=== PATIENT | female | born 1965 | race Hispanic/Latino ===

== ENCOUNTER 2016-09-02 23:13 | Emergency (ER) | payer SELFPAY ==
[2016-09-03 00:01] LABS: Basophils % (Auto) 0.4 % (0.0-1.8); Hematocrit 34.6 % (30.3-42.9); Hemoglobin 11.7 gm/dl (10.1-14.3); Mean Corpuscular HGB Conc 34 % (30-34); Mean Corpuscular Hemoglobin 27 pg (28-32); Mean Corpuscular Volume 81 fl (79-97); Platelet Count 240 K/mm3 (140-440); Red Blood Count 4.28 M/mm3 (3.65-5.03); Red Cell Distribution Width 14.9 % (13.2-15.2); White Blood Count 6.4 K/mm3 (4.5-11.0)
[2016-09-03 00:09] LABS: Anion Gap 17 mmol/L; Blood Urea Nitrogen 14 mg/dL (7-17); Calcium 8.7 mg/dL (8.4-10.2); Carbon Dioxide 25 mmol/L (22-30); Chloride 102.7 mmol/L (98-107); Glucose 100 mg/dL (65-100); Potassium 4.4 mmol/L (3.6-5.0); Sodium 140 mmol/L (137-145)
[2016-09-03 07:58] VITALS: BP 109/73
== END 2016-09-03 06:00 | disposition left against medical advice (07) ==
LOC: ED 23:13
DX: R07.9 Chest pain, unspecified (principal)
CPT/HCPCS: 36415; 80048; 84484; 85025; 93005; 93010

== ENCOUNTER 2016-10-31 12:24 | Emergency (ER) | payer SELFPAY ==
[2016-10-31] MEDS ORDERED: NACL 0.9% 1000 ML 1,000 ML IV ONE (13:18)
[2016-10-31] MEDS ORDERED: ZOFRAN IV ONE (13:18)
[2016-10-31] MEDS ORDERED: MORPHINE IV ONE (13:18)
--- NOTE | 2016-10-31 13:18 | Emergency Department Report ---
ED Abdominal Pain HPI - General Chief Complaint: Abdominal Pain Stated Complaint: ABD/FLANK PAIN Time Seen by Provider: 10/31/16 13:08 Source: patient, EMS Mode of arrival: Stretcher Limitations: No Limitations - History of Present Illness Initial Comments: 51-year-old female presents to the emergency department via EMS complaining of abdominal pain. Patient states that for the past 2 days she has been having nausea, vomiting, and diarrhea. She denies seeing any blood. She reports acute onset of right upper abdominal pain this morning at approximately 10 AM. Patient describes a stabbing pain that radiates through to her back. Pain has been constant since onset and increasing in intensity. There are no other complaints. MD Complaint: abdominal pain -: Sudden, This morning Time: 10:00 Location: RUQ Radiation: back Migration to: no migration Severity: severe Severity scale (0 -10): 9 Quality: stabbing Consistency: constant Improves With: nothing Worsens With: nothing Associated Symptoms: nausea, vomiting, diarrhea - Related Data Home Medications Medication Instructions Recorded Confirmed Last Taken Citalopram [Celexa] 20 mg PO QDAY 10/31/16 10/31/16 Unknown Previous Rx's Medication Instructions Recorded Last Taken Type Butalb/Acetaminophen/Caffeine 1 cap PO Q6HR PRN #20 cap 01/19/16 Unknown Rx [Fioricet 50-300-40 mg CAP] Promethazine [Phenergan TAB] 25 mg PO Q6HR PRN #20 tab 10/31/16 Unknown Rx oxyCODONE /ACETAMINOPHEN [Percocet 1 tab PO Q6HR PRN #20 tablet 10/31/16 Unknown Rx 5/325] Allergies Allergy/AdvReac Type Severity Reaction Status Date / Time aspirin Allergy Swelling Verified 09/29/15 20:30 ibuprofen [From Motrin] Allergy Swelling Verified 09/29/15 20:30 NSAIDS (Non-Steroidal Allergy Swelling Verified 09/29/15 20:30 Anti-Inflamma NTG paste Allergy Vomiting Uncoded 09/29/15 20:31 ED Review of Systems ROS: Stated complaint: ABD/FLANK PAIN Other details as noted in HPI Comment: All other systems reviewed and negative Gastrointestinal: abdominal pain, nausea, vomiting, diarrhea ED Past Medical Hx - Past Medical History Previous Medical History?: Yes Hx Psychiatric Treatment: Yes (depression) Hx Asthma: Yes - Surgical History Past Surgical History?: Yes Additional Surgical History: tubal ligation, , tonsillectomy - Family History Family history: no significant - Social History Smoking Status: Former Smoker Substance Use Type: None - Medications Home Medications: Home Medications Medication Instructions Recorded Confirmed Last Taken Type Butalb/Acetaminophen/Caffeine 1 cap PO Q6HR PRN #20 cap 01/19/16 Unknown Rx [Fioricet 50-300-40 mg CAP] Citalopram [Celexa] 20 mg PO QDAY 10/31/16 10/31/16 Unknown History Promethazine [Phenergan TAB] 25 mg PO Q6HR PRN #20 tab 10/31/16 Unknown Rx oxyCODONE /ACETAMINOPHEN [Percocet 1 tab PO Q6HR PRN #20 tablet 10/31/16 Unknown Rx 5/325] ED Physical Exam - General Limitations: No Limitations General appearance: alert, in distress (moderate distress secondary to pain) - Head Head exam: Present: atraumatic, normocephalic - Eye Eye exam: Present: normal appearance, PERRL, EOMI - ENT ENT exam: Present: normal exam, normal orophraynx, mucous membranes moist - Neck Neck exam: Present: normal inspection, full ROM. Absent: tenderness - Respiratory Respiratory exam: Present: normal lung sounds bilaterally. Absent: respiratory distress - Cardiovascular Cardiovascular Exam: Present: regular rate, normal rhythm, normal heart sounds - GI/Abdominal GI/Abdominal exam: Present: soft, tenderness (moderate right upper quadrant tenderness to palpation), guarding (voluntary), normal bowel sounds. Absent: distended, rebound - Extremities Exam Extremities exam: Present: normal inspection, full ROM. Absent: tenderness - Back Exam Back exam: Present: normal inspection, full ROM. Absent: tenderness - Neurological Exam Neurological exam: Present: alert, oriented X3. Absent: motor sensory deficit - Skin Skin exam: Present: warm, dry, intact ED Course Vital Signs 10/31/16 10/31/16 10/31/16 12:30 12:38 13:00 Temperature 97.9 F Pulse Rate 94 H 89 85 Respiratory 20 13 18 Rate Blood Pressure 123/76 109/63 O2 Sat by Pulse 98 96 Oximetry 10/31/16 10/31/16 10/31/16 13:26 13:30 14:00 Temperature Pulse Rate 87 Respiratory 18 15 18 Rate Blood Pressure 121/69 111/67 O2 Sat by Pulse 96 99 Oximetry 10/31/16 10/31/16 14:24 14:30 Temperature Pulse Rate 86 Respiratory 20 14 Rate Blood Pressure 117/74 O2 Sat by Pulse 93 Oximetry ED Medical Decision Making - Lab Data Result diagrams: 10/31/16 13:20 10/31/16 13:20 - Radiology Data Radiology results: report reviewed Abdominal ultrasound reveals probable hepatic steatosis with no other acute abnormality. - Medical Decision Making Lab and imaging results reviewed and discussed with the patient. Patient reports feeling better with medication. Patient will be discharged home at this time. - Differential Diagnosis cholecystitis, cholelithiasis, dehydration, renal failure, pancreatitis Critical care attestation.: If time is entered above; I have spent that time in minutes in the direct care of this critically ill patient, excluding procedure time. ED Disposition Clinical Impression: Abdominal pain Qualifiers: Abdominal location: right upper quadrant Qualified Code(s): R10.11 - Right upper quadrant pain Disposition: DISCHARGED TO HOME OR SELFCARE Is pt being admited?: No Condition: Stable Instructions: Abdominal Pain (ED) Prescriptions: oxyCODONE /ACETAMINOPHEN [Percocet 5/325] 1 tab PO Q6HR PRN #20 tablet PRN Reason: Pain Promethazine [Phenergan TAB] 25 mg PO Q6HR PRN #20 tab PRN Reason: Nausea Referrals: PRIMARY CARE, [Primary Care Provider] - 3-5 Days Time of Disposition: 15:54
[2016-10-31 13:37] LABS: Basophils % (Auto) 0.4 % (0.0-1.8); Eosinophils % (Auto) 5.2 % (0.0-4.3); Hemoglobin 10.6 gm/dl (10.1-14.3); Mean Corpuscular HGB Conc 34 % (30-34); Mean Corpuscular Hemoglobin 28 pg (28-32); Mean Corpuscular Volume 81 fl (79-97); Platelet Count 199 K/mm3 (140-440); Red Blood Count 3.84 M/mm3 (3.65-5.03); Red Cell Distribution Width 15.8 % (13.2-15.2); White Blood Count 6.1 K/mm3 (4.5-11.0)
[2016-10-31 14:13] LABS: Alanine Aminotransferase 33 units/L (7-56); Albumin 2.7 g/dL (3.9-5); Albumin/Globulin Ratio 1.1 %; Alkaline Phosphatase 122 units/L (35-129); Anion Gap 14 mmol/L; BUN/Creatinine Ratio 28.33; Blood Urea Nitrogen 17 mg/dL (7-17); Calcium 7.7 mg/dL (8.4-10.2); Carbon Dioxide 25 mmol/L (22-30); Chloride 107.6 mmol/L (98-107); Glucose 89 mg/dL (65-100); Sodium 143 mmol/L (137-145); Total Protein 5.1 g/dL (6.3-8.2)
[2016-10-31] MEDS ORDERED: DILAUDID IV ONE (14:18)
[2016-10-31 15:30] LABS: Bilirubin,Urine NEG (Negative); Blood,Urine NEG (Negative); Ketones,Urine NEG (Negative); Leukocyte Esterase,Urine TR (Negative); Mucus,Urine FEW /HPF; Nitrite,Urine NEG (Negative); Protein,Urine <15 mg/dL mg/dL (Negative); Urobilinogen,Urine < 2.0 mg/dL (<2.0)
--- NOTE | 2016-10-31 15:33 | Ultrasound Report ---
Ultrasound of the right upper quadrant. History: Bradycardia pain. Findings: The abdominal aorta is normal. There is increased echogenicity of the hepatic parenchyma with no focal abnormalities. The gallbladder is normal. Common bile duct is normal in caliber. The right kidney is unremarkable. The pancreas is not well-visualized. Impression: Probable hepatic steatosis with no other significant findings.
[2016-10-31 15:54] VITALS: BP 121/69
== END 2016-10-31 16:09 | disposition home or self-care (01) ==
LOC: ED 12:24
DX: R10.11 Right upper quadrant pain (principal); R11.2 Nausea with vomiting, unspecified; R19.7 Diarrhea, unspecified; J45.909 Unspecified asthma, uncomplicated; Z88.6 Allergy status to analgesic agent; Z98.51 Tubal ligation status; Z88.8 Allergy status to other drugs, medicaments and biological substances
CPT/HCPCS: 36415; 76705; 80053; 81001; 83690; 85025; 96361; 96374; 96375; 99284; J1170; J2270; J2405; J7030

== ENCOUNTER 2016-11-02 18:00 | Emergency (ER) | payer SELFPAY ==
[2016-11-02 19:33] LABS: Basophils % (Auto) 0.6 % (0.0-1.8); Eosinophils % (Auto) 3.6 % (0.0-4.3); Hematocrit 38.5 % (30.3-42.9); Hemoglobin 12.7 gm/dl (10.1-14.3); Mean Corpuscular HGB Conc 33 % (30-34); Mean Corpuscular Hemoglobin 27 pg (28-32); Mean Corpuscular Volume 81 fl (79-97); Platelet Count 264 K/mm3 (140-440); Red Blood Count 4.73 M/mm3 (3.65-5.03); Red Cell Distribution Width 16.2 % (13.2-15.2); White Blood Count 6.8 K/mm3 (4.5-11.0)
[2016-11-02 19:55] LABS: Alanine Aminotransferase 38 units/L (7-56); Albumin 2.6 g/dL (3.9-5); Albumin/Globulin Ratio 0.8 %; Alkaline Phosphatase 130 units/L (35-129); BUN/Creatinine Ratio 26.66; Blood Urea Nitrogen 16 mg/dL (7-17); Calcium 7.9 mg/dL (8.4-10.2); Carbon Dioxide 25 mmol/L (22-30); Glucose 90 mg/dL (65-100); Lipase 11 units/L (13-60); Total Protein 5.7 g/dL (6.3-8.2)
[2016-11-02 19:56] LABS: Anion Gap 16 mmol/L; Chloride 101.8 mmol/L (98-107); Potassium 4.1 mmol/L (3.6-5.0); Sodium 139 mmol/L (137-145)
[2016-11-02 20:13] VITALS: BP 122/78
[2016-11-02 21:28] LABS: Bilirubin,Urine NEG (Negative); Blood,Urine NEG (Negative); Ketones,Urine NEG (Negative); Leukocyte Esterase,Urine TR (Negative); Mucus,Urine 3+ /HPF; Nitrite,Urine NEG (Negative); Urobilinogen,Urine < 2.0 mg/dL (<2.0)
== END 2016-11-02 19:15 | disposition left against medical advice (07) ==
LOC: ED 18:00
DX: R10.11 Right upper quadrant pain (principal); R11.2 Nausea with vomiting, unspecified; R19.7 Diarrhea, unspecified; Z53.21 Procedure and treatment not carried out due to patient leaving prior to being seen by health care provider
CPT/HCPCS: 36415; 80053; 81001; 83690; 84703; 85025

== ENCOUNTER 2016-11-16 16:15 | Inpatient (IN) | payer SELFPAY ==
[2016-11-16 16:56] LABS: Basophils % (Auto) 0.7 % (0.0-1.8); Eosinophils % (Auto) 2.6 % (0.0-4.3); Hematocrit 39.3 % (30.3-42.9); Mean Corpuscular HGB Conc 33 % (30-34); Mean Corpuscular Hemoglobin 27 pg (28-32); Mean Corpuscular Volume 81 fl (79-97); Platelet Count 341 K/mm3 (140-440); Red Blood Count 4.88 M/mm3 (3.65-5.03); Red Cell Distribution Width 15.6 % (13.2-15.2); White Blood Count 9.6 K/mm3 (4.5-11.0)
[2016-11-16 17:20] LABS: Alanine Aminotransferase 28 units/L (7-56); Albumin/Globulin Ratio 0.9 %; Alkaline Phosphatase 137 units/L (35-129); Anion Gap 17 mmol/L; BUN/Creatinine Ratio 18.57; Blood Urea Nitrogen 13 mg/dL (7-17); Calcium 8.5 mg/dL (8.4-10.2); Carbon Dioxide 26 mmol/L (22-30); Chloride 100.7 mmol/L (98-107); Glucose 103 mg/dL (65-100); Lipase 15 units/L (13-60); Potassium 4.5 mmol/L (3.6-5.0); Sodium 139 mmol/L (137-145); Total Protein 6.2 g/dL (6.3-8.2)
[2016-11-16 18:26] LABS: Bacteria,Urine 1+ /HPF (Negative); Bilirubin,Urine NEG (Negative); Blood,Urine NEG (Negative); Ketones,Urine NEG (Negative); Leukocyte Esterase,Urine MOD (Negative); Mucus,Urine 1+ /HPF; Nitrite,Urine NEG (Negative); Protein,Urine <15 mg/dL mg/dL (Negative); Urobilinogen,Urine < 2.0 mg/dL (<2.0); WBC,Urine < 1.0 /HPF (0.0-6.0)
[2016-11-17] MEDS ORDERED: TYLENOL PO ONE (00:41)
--- NOTE | 2016-11-17 02:09 | Emergency Department Report ---
HPI - General Chief Complaint: Chest Pain Time Seen by Provider: 11/17/16 01:44 - HPI HPI: This is a 51-year-old female presents to the emergency department with the complaint of some generalized chest pain with some radiation towards the left shoulder and the back that started earlier today around noon. It is associated with some nausea and 2 episodes of vomiting. She has some intermittent shortness of breath. She denies any fever, diaphoresis. She has a past medical history of asthma and a psychiatric history of depression. She has a surgical history of tubal ligation and previous . She did not take anything for symptoms prior to presentation. She goes to the [facility]" for her primary care needs. No recent travel or sick contacts at home. ED Past Medical Hx - Past Medical History Hx Psychiatric Treatment: Yes (depression) Hx Asthma: Yes - Surgical History Additional Surgical History: tubal ligation, , tonsillectomy - Social History Smoking Status: Former Smoker Substance Use Type: None - Medications Home Medications: Home Medications Medication Instructions Recorded Confirmed Last Taken Type Butalb/Acetaminophen/Caffeine 1 cap PO Q6HR PRN #20 cap 01/19/16 Unknown Rx [Fioricet 50-300-40 mg CAP] Citalopram [Celexa] 20 mg PO QDAY 10/31/16 10/31/16 Unknown History Promethazine [Phenergan TAB] 25 mg PO Q6HR PRN #20 tab 10/31/16 Unknown Rx oxyCODONE /ACETAMINOPHEN [Percocet 1 tab PO Q6HR PRN #20 tablet 10/31/16 Unknown Rx 5/325] ED Review of Systems ROS: Stated complaint: CHEST PAIN Other details as noted in HPI Comment: All other systems reviewed and negative Constitutional: denies: chills, fever Eyes: denies: eye pain, eye discharge, vision change ENT: denies: ear pain, throat pain Respiratory: shortness of breath. denies: cough Cardiovascular: chest pain. denies: palpitations Gastrointestinal: nausea, vomiting Genitourinary: denies: urgency, dysuria, discharge Musculoskeletal: back pain. denies: arthralgia Skin: denies: rash, lesions Neurological: denies: headache, weakness, paresthesias Physical Exam - Physical Exam Vital Signs: Vital Signs 11/16/16 11/17/16 16:39 00:38 Temperature 97.5 F L 98.1 F Pulse Rate 102 H 100 H Respiratory 18 22 Rate Blood Pressure 117/73 112/78 O2 Sat by Pulse 100 100 Oximetry Physical Exam: GENERAL: The patient is well-developed well-nourished. HEENT: Normocephalic. Atraumatic. Extraocular motions are intact. Patient has moist mucous membranes. Pupils equal reactive to light bilaterally. NECK: Supple. Trachea is midline. CHEST/LUNGS: Clear to auscultation. There is no respiratory distress noted. Chest pain is not reproducible to palpation of chest wall. HEART/CARDIOVASCULAR: Regular. There is no tachycardia. There is no gallop rub or murmur. ABDOMEN: Abdomen is soft, nontender. Patient has normal bowel sounds. There is no abdominal distention. SKIN: There is no rash. There is no edema. There is no diaphoresis. NEURO: The patient is awake, alert, and oriented. The patient is cooperative. The patient has no focal neurologic deficits. The patient has normal speech. MUSCULOSKELETAL: There is no tenderness or deformity. There is no limitation range of motion. There is no evidence of acute injury. ED Course Vital Signs 11/16/16 11/17/16 16:39 00:38 Temperature 97.5 F L 98.1 F Pulse Rate 102 H 100 H Respiratory 18 22 Rate Blood Pressure 117/73 112/78 O2 Sat by Pulse 100 100 Oximetry ED Medical Decision Making - Lab Data Result diagrams: 11/16/16 16:46 11/16/16 16:46 - EKG Data -: EKG Interpreted by Me EKG shows normal: sinus rhythm, axis, intervals, QRS complexes, ST-T waves ( nonspecific ST-T changes) Rate: tachycardia (102 bpm) - EKG Data When compared to previous EKG there are: previous EKG unavailable Interpretation: other (sinus tachycardia with nonspecific ST T-wave changes) - Radiology Data Radiology results: report reviewed, image reviewed interpreted by me: Chest x-ray did not show any acute process. Heart is normal shape and size. No effusions. No pneumothorax. No signs of pneumonia seen. CT angiography of the chest does not show any pulmonary embolism, dissection, pneumonia, pleural effusions or any acute process. - Medical Decision Making 51-year-old female presents with chest pain with some radiation towards the back and left shoulder that started earlier in the day. EKG does not show any ST elevation [place], ischemia or dysrhythmia. First troponin negative. Chest x- ray does not show any acute process. She had a slightly elevated and equivocal d-dimer so a CT angiography of the chest was done that was negative for pulmonary embolism, dissection or any acute process. Patient has never had a full cardiac workup including a stress test and still complains of discomfort despite pain medication so she will be admitted to the hospital for further evaluation and either a stress test or cardio consultation. - Differential Diagnosis [place], PE, pneumonia, costochondritis Critical Care Time: No Critical care attestation.: If time is entered above; I have spent that time in minutes in the direct care of this critically ill patient, excluding procedure time. ED Disposition Clinical Impression: Shortness of breath Chest pain Qualifiers: Chest pain type: unspecified Qualified Code(s): R07.9 - Chest pain, unspecified Disposition: OP ADMIT IP TO THIS HOSP Is pt being admited?: Yes Condition: Stable Instructions: Chest Pain (ED) Referrals: PRIMARY CARE, [Primary Care Provider] - 3-5 Days Time of Disposition: 05:22
[2016-11-17] MEDS ORDERED: MORPHINE IV ONE (03:20)
--- NOTE | 2016-11-17 05:09 | Cat Scan Report ---
FINAL REPORT PROCEDURE: CT ANGIO CHEST TECHNIQUE: Computerized tomographic angiography of the chest was performed after the IV injection of iodinated nonionic contrast including image processing. The image data was postprocessed using 2-dimensional multiplanar reformatted (MPR) and 3-dimensional (MIP and/or volume rendered) techniques. HISTORY: CP, elevated dimer COMPARISON: No prior studies are available for comparison. FINDINGS: Heart and pericardium: Normal. Thoracic aorta: Normal. Pulmonary vasculature: Normal. Lymph nodes: No enlarged thoracic lymph nodes. Lungs: No consolidation, effusion or pneumothorax. Mild atelectasis both lower lungs. The central airway is patent.. Pleural space: No effusion, thickening, or pneumothorax. Musculoskeletal structures: No acute osseous abnormality.. Upper abdominal structures: No significant abnormality. IMPRESSION: No evidence acute consolidation, effusion or pneumothorax. Mild atelectasis both lower lungs. There is no evidence of pulmonary arterial emboli.
[2016-11-17] MEDS ORDERED: MILK OF MAGNESIA PO PRN (07:47)
[2016-11-17] MEDS ORDERED: TYLENOL PO PRN (07:47)
[2016-11-17] MEDS ORDERED: DULCOLAX PR PRN (07:47)
[2016-11-17] MEDS ORDERED: ZOFRAN IV PRN (07:47)
[2016-11-17] MEDS ORDERED: MORPHINE IV PRN ×2 (07:47→12:00)
[2016-11-17] MEDS ORDERED: NITROSTAT SL PRN (07:50)
[2016-11-17] MEDS ORDERED: SODIUM CHLORIDE FLUSH SYRINGE 10 ML IV PRN (07:50)
[2016-11-17] MEDS ORDERED: D5NS 1,000 ML IV SCH (08:00)
[2016-11-17] MEDS ORDERED: LEXISCAN IV ONE (09:02)
--- NOTE | 2016-11-17 09:09 | History and Physical Report ---
History of Present Illness Date of examination: 11/17/16 Date of admission: 11/17/16 07:47 Chief complaint: Chest Pain History of present illness: Patient is a 51 years old female with h/o Asthma who presented to the ED complaining of chest pain. she states that the pain began the last night and consisted of a sharp pain that lasted around 30 seconds, followed by a pressure pain that would last around 5 minutes. The pain was located over her left chest area somewhat near her shoulder. The onset of pain came while the patient was watching TV in her home. . The pain radiated into her left arm, neck and upper jaw, was associated with a feeling of queasiness and sweating and lasted 10 minutes. The pain went away spontaneously after 10 minutes. Her discomfort was accompanied by mild shortness of breath, nausea, and vomiting. she continued to have several episodes of the pain throughout the evening, so she decided to come to the ED Past History Past Medical History: migraines, other (Asthma) Past Surgical History: No surgical history Social history: denies: smoking, alcohol abuse Family history: CAD Medications and Allergies Allergies Allergy/AdvReac Type Severity Reaction Status Date / Time aspirin Allergy Swelling Verified 11/16/16 16:37 ibuprofen [From Motrin] Allergy Swelling Verified 11/16/16 16:37 NSAIDS (Non-Steroidal Allergy Swelling Verified 11/16/16 16:37 Anti-Inflamma NTG paste Allergy Vomiting Uncoded 11/16/16 16:37 Home Medications Medication Instructions Recorded Confirmed Last Taken Type Butalb/Acetaminophen/Caffeine 1 cap PO Q6HR PRN #20 cap 01/19/16 Unknown Rx [Fioricet 50-300-40 mg CAP] Citalopram [Celexa] 20 mg PO QDAY 10/31/16 10/31/16 Unknown History Promethazine [Phenergan TAB] 25 mg PO Q6HR PRN #20 tab 10/31/16 Unknown Rx oxyCODONE /ACETAMINOPHEN [Percocet 1 tab PO Q6HR PRN #20 tablet 10/31/16 Unknown Rx 5/325] Active Meds: Active Medications Acetaminophen (Tylenol) 650 mg PO Q4H PRN PRN Reason: Pain MILD(1-3)/Fever >100.5/MG Bisacodyl (Dulcolax) 10 mg ND QDAY PRN PRN Reason: Constipation unrelieved by MOM Enoxaparin Sodium (Lovenox) 40 mg SUB-Q QDAY DALE Dextrose/Sodium Chloride (D5ns) 1,000 mls @ 75 mls/hr IV DIRECT DALE Magnesium Hydroxide (Milk Of Magnesia) 30 ml PO Q4H PRN PRN Reason: Constipation Morphine Sulfate (Morphine) 4 mg IV Q4H PRN PRN Reason: Pain , Severe (7-10) Nitroglycerin (Nitrostat) 0.4 mg SL Q5M PRN PRN Reason: Chest Pain Ondansetron HCl (Zofran) 4 mg IV Q4H PRN PRN Reason: N/V unrelieved by Reglan Regadenoson (Lexiscan) 0.4 mg IV ONCE ONE Stop: 11/17/16 09:03 Sodium Chloride (Sodium Chloride Flush Syringe 10 Ml) 10 ml IV PRN PRN PRN Reason: LINE FLUSH Review of Systems Constitutional: sweats, no weight loss, no weight gain, no fever, no chills, no fatigue, no weakness Ears, nose, mouth and throat: no ear pain, no ear discharge Breasts: normal Cardiovascular: chest pain, shortness of breath (Mild ), no palpitations, no rapid/irregular heart beat, no syncope, no high blood pressure Respiratory: no cough, no cough with sputum, no excessive sputum Gastrointestinal: no abdominal pain, no nausea, no vomiting, no diarrhea Genitourinary Female: no pelvic pain, no flank pain, no dysuria Menstruation: no currently menstrual, no premenarcheal Musculoskeletal: no neck stiffness, no neck pain, no shooting arm pain Integumentary: no rash, no pruritis, no redness Neurological: no head injury, no transient paralysis Psychiatric: no anxiety, no memory loss Endocrine: no cold intolerance, no heat intolerance, no polyphagia Hematologic/Lymphatic: no easy bruising, no easy bleeding Exam - Constitutional Vitals: Temp Pulse Resp BP Pulse Ox 98.0 F 87 20 115/71 96 11/17/16 06:55 11/17/16 06:55 11/17/16 06:55 11/17/16 06:55 11/17/16 06:55 General appearance: Present: no acute distress - EENT Eyes: Present: PERRL, EOM intact ENT: hearing intact, clear oral mucosa, dentition normal - Neck Neck: Present: supple, normal ROM - Respiratory Respiratory effort: normal Respiratory: negative: diminished, rales, rhonchi, wheezing - Cardiovascular Rhythm: regular Heart Sounds: Present: S1 & S2 - Extremities Extremities: pulses symmetrical, No edema Peripheral Pulses: within normal limits - Abdominal General gastrointestinal: Present: soft, non-tender Female genitourinary: Present: deferred - Rectal Rectal Exam: deferred - Integumentary Integumentary: Present: clear, warm, dry - Musculoskeletal Musculoskeletal: gait normal, strength equal bilaterally - Psychiatric Psychiatric: appropriate mood/affect, intact judgment & insight - Neurologic Neurologic: CNII-XII intact Results - Labs CBC & Chem 7: 11/16/16 16:46 11/16/16 16:46 - Imaging and Cardiology Chest x-ray: image reviewed (unremarkable) CT scan - chest: image reviewed (No Evidence of acute consolidation. Mild atelectasis bilateral lower lungs) Assessment and Plan ASSESSMENT 1. Chest Pain We will admit to Telemetry for continues cardiac monitoring 12 lead EKG obtained, we also get another EKG in order for any changes that have taken since the first obtained We will do serial cardiac enzymes and follow up Troponin IVF hydration Pain control with Morphine Oxygen as needed Echocardiogram pending Stress Test pending chest X-ray unremarkable Cardiology consulted 2.Tachycardia IVF hydration on continues panel monitor 3. Migraine we will resume her home medicine, Butalbital acetaminophen-caffeine and Celexa VTE/GI Prophylaxis Lovenox/Protonix
--- NOTE | 2016-11-17 09:26 | XRay Report ---
AP CHEST : 11/17/16 CLINICAL: Chest pain. COMPARISON:None available FINDINGS: Normal heart and pulmonary vessels. The lungs are normally expanded and clear. The bones and soft tissues are unremarkable. IMPRESSION: Normal chest.
[2016-11-17] MEDS ORDERED: LOVENOX SUB-Q SCH (10:00)
[2016-11-17 14:20] LABS: Creatine Kinase MB < 1.0 ng/mL (0.0-4.0)
[2016-11-17 14:22] LABS: Creatine Kinase 41 units/L (30-135)
--- NOTE | 2016-11-17 15:26 | Discharge Summary ---
Providers - Providers Date of Admission: 11/17/16 07:47 Date of discharge: 11/17/16 Attending physician: REJI HOSKINS 11/17/16 Consult to Cardiac Rehabilitation [CONS] Routine Reason For Exam: Phase I 11/17/16 12:15 Consult to Physician [CONS] Routine Consulting Provider: ROLANDA YING Reason For Exam: Acute arespiratory Failure Place consult to:: yes Notified:: yes Primary care physician: [facility] [facility] Hospitalization Reason for admission: left sided chest pain Condition: Stable Pertinent studies: Chest x-ray; normal study CT angiogram of the chest; no evidence of acute consolidation or effusion or pneumothorax, mild atelectasis in both lungs Nuclear stress test; abnormal, minimally ischemia, follow up in the office for further evaluation[preliminary report] Hospital course: Final diagnosis; Chest pain, resolved Mild abnormality on stress test Gastroesophageal reflux disease Musculoskeletal pain Migraine headaches Bronchial asthma 51-year-old female patient with significant past medical history of bronchial asthma was admitted through emergency room with left-sided chest pain, patient was initially evaluated in my screen 2 was negative, however in view of her risk factors patient underwent nuclear stress test which showed mild abnormality Cardiology has recommended to follow the patient in outpatient in 1 week for further evaluation and management Patient's chest pain could be secondary to gastroesophageal reflux disease or musculoskeletal pain likely costochondritis, patient is advised Pepcid, pain medications Today she is comfortable in bed alert awake oriented 3 not in acute distress Denies chest pain or shortness of breath Vital signs are stable [id number] evaluation and physical examination done by me prior to discharge is unremarkable as detailed below Disposition: IL- TO HOME OR SELFCARE Time spent for discharge: 31 min Core Measure Documentation - Palliative Care Palliative Care/ Comfort Measures: Not Applicable - Core Measures Any of the following diagnoses?: none Exam - Constitutional Vitals: Temp Pulse Resp BP Pulse Ox 98.2 F 95 H 18 121/75 96 11/17/16 11:44 11/17/16 11:44 11/17/16 11:44 11/17/16 11:44 11/17/16 11:44 General appearance: Present: no acute distress, well-nourished - EENT Eyes: Present: PERRL, EOM intact - Neck Neck: Present: supple, normal ROM - Respiratory Respiratory effort: normal Respiratory: negative: rales, rhonchi, wheezing - Cardiovascular Rhythm: regular Heart Sounds: Present: S1 & S2 - Extremities Extremities: no ischemia, pulses intact, pulses symmetrical Peripheral Pulses: within normal limits - Abdominal General gastrointestinal: Present: soft, non-tender, non-distended, normal bowel sounds - Integumentary Integumentary: Present: clear, warm - Musculoskeletal Musculoskeletal: strength equal bilaterally - Psychiatric Psychiatric: appropriate mood/affect, cooperative - Neurologic Neurologic: CNII-XII intact, moves all extremities Plan Activity: no restrictions Diet: other (headache diet) Additional Instructions: To you have Have chest pain or shortness of breath, contact M.D. or go to emergency room as needed. Take [id number] aspirin 81 mg by mouth daily Follow up with: PRIMARY CAREMD [Primary Care Provider] - 3-5 Days TOOTIE RODRIGUEZ MD [Staff Physician] - 7 Days
[2016-11-17 17:50] VITALS: BP 110/64
--- NOTE | 2016-11-18 02:14 | Treadmill Report ---
LEXISCAN STRESS TEST REASON FOR STUDY: Chest pain. STRESS TEST PROTOCOL: The patient received 0.4 mg of Lexiscan intravenously over 10 seconds. Tc-99m tetrofosmin was subsequently injected. Baseline EKG: Normal sinus rhythm. ST segment abnormality, consider inferior ischemia. Lexiscan EKG: No significant change from baseline. No chest pain. No arrhythmias. IMPRESSION: Nondiagnostic due to baseline EKG abnormalities. Nuclear imaging report to follow. [facility]# [id number] TIM/CORAZON GLEZ
--- NOTE | 2016-11-19 00:31 | Treadmill Report ---
THALLIUM REPORT REASON FOR STUDY: Chest pain. IMAGING PROTOCOL: The patient received tc99m tetrofosmin for rest imaging and tc99m tetrofosmin for stress imaging. Imaging for all procedures ____ usual protocol. NUCLEAR IMAGING RESULTS: Normal left ventricular cavity size with no change from stress to rest. Distribution of radionuclide within the left ventricle revealed a small area of photo-induction involving the apex. The degree of photo-induction is mild. Rest imaging showed complete improvement in this defect. Gated SPECT imaging revealed hyperdynamic global left ventricular systolic function. The calculated left ventricular ejection fraction is 90%. IMPRESSION: Small reversible apical defect. Hyperdynamic global left ventricular systolic function. EF of 90%. These findings suggest minimal ischemia in the left anterior descending coronary artery territory. No evidence of prior infarction. [facility]# [id number] TIM/NTS
== END 2016-11-17 19:00 | disposition home or self-care (01) | DRG 206 ==
LOC: ED 16:15 → 4A 11-17 07:47
PROVIDERS: ADMIT Internal Medicine; ATTEND Internal Medicine
DX: M94.0 Chondrocostal junction syndrome [Tietze] (principal); K21.9 Gastro-esophageal reflux disease without esophagitis; J45.909 Unspecified asthma, uncomplicated; F32.9 Major depressive disorder, single episode, unspecified; R00.0 Tachycardia, unspecified; G43.909 Migraine, unspecified, not intractable, without status migrainosus; Z87.891 Personal history of nicotine dependence; Z82.49 Family history of ischemic heart disease and other diseases of the circulatory system; Z88.6 Allergy status to analgesic agent; Z88.8 Allergy status to other drugs, medicaments and biological substances; Z98.51 Tubal ligation status
CPT/HCPCS: 36415; 71010; 71275; 78452; 80053; 81001; 82550; 82553; 83690; 84484; 85025; 85379; 93005; 93010; 93017; A9502; J1650; J2270; J2785; Q9967

== ENCOUNTER 2016-11-27 14:41 | Emergency (ER) | payer SELFPAY ==
[2016-11-27] MEDS ORDERED: ZOFRAN IV ONE (16:33)
[2016-11-27] MEDS ORDERED: PROTONIX IV ONE (16:33)
[2016-11-27] MEDS ORDERED: MORPHINE IV ONE ×2 (16:33→17:44)
[2016-11-27 16:37] LABS: Basophils % (Auto) 0.4 % (0.0-1.8); Eosinophils % (Auto) 3.5 % (0.0-4.3); Hematocrit 31.3 % (30.3-42.9); Hemoglobin 10.6 gm/dl (10.1-14.3); Mean Corpuscular HGB Conc 34 % (30-34); Mean Corpuscular Hemoglobin 27 pg (28-32); Mean Corpuscular Volume 80 fl (79-97); Platelet Count 235 K/mm3 (140-440); Red Blood Count 3.91 M/mm3 (3.65-5.03); Red Cell Distribution Width 15.9 % (13.2-15.2); White Blood Count 6.9 K/mm3 (4.5-11.0)
[2016-11-27 16:47] LABS: Anion Gap 15 mmol/L; Blood Urea Nitrogen 11 mg/dL (7-17); Calcium 7.9 mg/dL (8.4-10.2); Carbon Dioxide 22 mmol/L (22-30); Chloride 106.2 mmol/L (98-107); Glucose 90 mg/dL (65-100); Potassium 3.7 mmol/L (3.6-5.0); Sodium 139 mmol/L (137-145)
[2016-11-27 16:51] LABS: Alanine Aminotransferase 26 units/L (7-56); Albumin 2.9 g/dL (3.9-5); Alkaline Phosphatase 122 units/L (35-129); Amylase 23 units/L (27-131); INR 1.08 (0.87-1.13); Lipase 13 units/L (13-60); Partial Thromboplastin Time 28.1 Sec. (24.2-36.6); Total Protein 5.8 g/dL (6.3-8.2)
[2016-11-27 16:52] LABS: Bilirubin,Direct < 0.2 mg/dL (0-0.2); Bilirubin,Indirect 0.2 mg/dL
[2016-11-27 17:03] LABS: Bilirubin,Urine NEG (Negative); Blood,Urine NEG (Negative); Ketones,Urine NEG (Negative); Leukocyte Esterase,Urine SM (Negative); Mucus,Urine FEW /HPF; Nitrite,Urine NEG (Negative); Protein,Urine <15 mg/dL mg/dL (Negative); Urobilinogen,Urine < 2.0 mg/dL (<2.0)
[2016-11-27 17:11] LABS: RBC,Urine < 1.0 /HPF (0.0-6.0)
[2016-11-27 18:07] VITALS: BP 107/68
--- NOTE | 2016-11-27 18:59 | Ultrasound Report ---
FINAL REPORT EXAM: US ABDOMEN LIMITED HISTORY: RUQ pain TECHNIQUE: Real-time sonography was performed of the right upper quadrant and images are submitted for interpretation. PRIORS: None. FINDINGS: There is diffuse increased echogenicity of the liver consistent with fatty infiltration. The gallbladder appears normal without stones. There is no evidence of biliary dilatation, the common bile duct measures 5 millimeters. Limited evaluation of the pancreas is unremarkable. The visualized segments of the aorta and inferior vena cava appear normal. The right kidney appears normal in size, shape and echogenicity, measuring 11.9 x 4.4 x 4.4 cm. IMPRESSION: Diffuse fatty infiltration of the liver. Otherwise, normal right upper quadrant ultrasound.
--- NOTE | 2016-11-27 19:23 | Emergency Department Report ---
ED Abdominal Pain HPI - General Chief Complaint: Abdominal Pain Stated Complaint: ABDOMINAL PAIN Time Seen by Provider: 11/27/16 15:55 Source: EMS Mode of arrival: Stretcher Limitations: No Limitations - History of Present Illness Initial Comments: Patient complains of discomfort in the right upper quadrant of her abdomen which slightly radiates to her back. She has been recently admitted to the hospital and a CT of her chest showed no pulmonary or vascular abnormality. There was no comments upon the liver at that time saw I presume the viewed area revealed no significant abnormality. The patient told me that she never had an ultrasound before but indeed she did about 3 weeks ago on another visit. This ultrasound was actually negative. Patient had a recent admission for chest pain with a negative workup. She tells me that she is had discomfort in the right upper quadrant of her abdomen for the past several days which has been exacerbated by eating. She denies a previous history of gallstones but states they run in the family. She's had no fever or chills. She has been nauseated but not vomiting. MD Complaint: abdominal pain -: Gradual, days(s) Location: RUQ Radiation: R flank (occasionally) Migration to: no migration Severity: moderate Quality: aching Consistency: constant Improves With: nothing Worsens With: nothing Associated Symptoms: nausea - Related Data Home Medications Medication Instructions Recorded Confirmed Last Taken Citalopram [Celexa] 20 mg PO QDAY 10/31/16 10/31/16 Unknown Previous Rx's Medication Instructions Recorded Last Taken Type Butalb/Acetaminophen/Caffeine 1 cap PO Q6HR PRN #20 cap 01/19/16 Unknown Rx [Fioricet 50-300-40 mg CAP] Promethazine [Phenergan TAB] 25 mg PO Q6HR PRN #20 tab 10/31/16 Unknown Rx oxyCODONE /ACETAMINOPHEN [Percocet 1 tab PO Q6HR PRN #20 tablet 10/31/16 Unknown Rx 5/325 mg] Famotidine [Pepcid] 20 mg PO BID #20 tablet 11/17/16 Unknown Rx Nitrofurantoin Treutlen/M-Cryst 100 mg PO Q12HR #7 capsule 11/27/16 Unknown Rx [Macrobid CAP] traMADol [Ultram] 50 mg PO Q6HR PRN #14 tablet 11/27/16 Unknown Rx Allergies Allergy/AdvReac Type Severity Reaction Status Date / Time aspirin Allergy Swelling Verified 11/16/16 16:37 ibuprofen [From Motrin] Allergy Swelling Verified 11/16/16 16:37 NSAIDS (Non-Steroidal Allergy Swelling Verified 11/16/16 16:37 Anti-Inflamma NTG paste Allergy Vomiting Uncoded 11/16/16 16:37 ED Review of Systems ROS: Stated complaint: ABDOMINAL PAIN Other details as noted in HPI Constitutional: denies: chills, fever Eyes: denies: eye pain, eye discharge, vision change ENT: denies: ear pain, throat pain Respiratory: denies: cough, shortness of breath, wheezing Cardiovascular: denies: chest pain, palpitations Endocrine: no symptoms reported Gastrointestinal: abdominal pain, nausea. denies: diarrhea Genitourinary: denies: urgency, dysuria, discharge Musculoskeletal: denies: back pain, joint swelling, arthralgia Skin: denies: rash, lesions Neurological: denies: headache, weakness, paresthesias Psychiatric: denies: anxiety, depression Hematological/Lymphatic: denies: easy bleeding, easy bruising ED Past Medical Hx - Past Medical History Hx Congestive Heart Failure: No Hx Diabetes: No Hx Psychiatric Treatment: Yes (depression) Hx Asthma: Yes Hx COPD: No - Surgical History Additional Surgical History: tubal ligation, , tonsillectomy - Social History Smoking Status: Never Smoker Substance Use Type: None - Medications Home Medications: Home Medications Medication Instructions Recorded Confirmed Last Taken Type Butalb/Acetaminophen/Caffeine 1 cap PO Q6HR PRN #20 cap 01/19/16 Unknown Rx [Fioricet 50-300-40 mg CAP] Citalopram [Celexa] 20 mg PO QDAY 10/31/16 10/31/16 Unknown History Promethazine [Phenergan TAB] 25 mg PO Q6HR PRN #20 tab 10/31/16 Unknown Rx oxyCODONE /ACETAMINOPHEN [Percocet 1 tab PO Q6HR PRN #20 tablet 10/31/16 Unknown Rx 5/325 mg] Famotidine [Pepcid] 20 mg PO BID #20 tablet 11/17/16 Unknown Rx Nitrofurantoin Treutlen/M-Cryst 100 mg PO Q12HR #7 capsule 11/27/16 Unknown Rx [Macrobid CAP] traMADol [Ultram] 50 mg PO Q6HR PRN #14 tablet 11/27/16 Unknown Rx ED Physical Exam - General Limitations: No Limitations General appearance: alert, in no apparent distress - Head Head exam: Present: atraumatic, normocephalic - Eye Eye exam: Present: normal appearance. Absent: scleral icterus - ENT ENT exam: Present: mucous membranes moist - Neck Neck exam: Present: normal inspection - Respiratory Respiratory exam: Present: normal lung sounds bilaterally. Absent: respiratory distress - Cardiovascular Cardiovascular Exam: Present: regular rate, normal rhythm. Absent: systolic murmur, diastolic murmur, rubs, gallop - GI/Abdominal GI/Abdominal exam: Present: soft, tenderness (right upper quadrant), normal bowel sounds. Absent: distended, guarding, rebound, rigid - Extremities Exam Extremities exam: Present: normal inspection - Back Exam Back exam: Present: normal inspection. Absent: CVA tenderness (R), CVA tenderness (L) - Neurological Exam Neurological exam: Present: alert, oriented X3, CN II-XII intact. Absent: motor sensory deficit - Psychiatric Psychiatric exam: Present: normal affect, normal mood - Skin Skin exam: Present: warm, dry, intact, normal color. Absent: rash ED Course Vital Signs 11/27/16 11/27/16 11/27/16 15:25 16:50 18:06 Temperature 98.2 F 98.4 F Pulse Rate 97 H 86 95 H Respiratory 16 16 16 Rate Blood Pressure 111/75 Blood Pressure 117/73 107/68 [Left] O2 Sat by Pulse 100 100 98 Oximetry - Reevaluation(s) Reevaluation #1: Patient's pain has largely resolved at the moment of reexamination about 5 minutes ago. She states she doesn't have a physician and she recently moved to this area from [place]. It is possible the patient has chronic gallbladder disease. However her ultrasound today was again normal. She will be referred for outpatient follow-up. She will be given a few days of Macrobid as she has slight pyuria. 11/27/16 19:21 ED Medical Decision Making - Lab Data Result diagrams: 11/27/16 16:01 11/27/16 16:01 - Radiology Data Radiology results: report reviewed interpreted by me: Fatty liver otherwise no abnormal findings Critical care attestation.: If time is entered above; I have spent that time in minutes in the direct care of this critically ill patient, excluding procedure time. ED Disposition Clinical Impression: Right upper quadrant pain Disposition: DC-01 TO HOME OR SELFCARE Is pt being admited?: No Does the pt Need Aspirin: No Condition: Stable Instructions: Abdominal Pain (ED) Additional Instructions: Follow-up with primary care provider or GI physician. Return to the emergency department any acute change as needed. Prescriptions: Nitrofurantoin Treutlen/M-Cryst [Macrobid CAP] 100 mg PO Q12HR #7 capsule traMADol [Ultram] 50 mg PO Q6HR PRN #14 tablet PRN Reason: Pain Referrals: PRIMARY MD BART [Primary Care Provider] - 3-5 Days MIGUEL GATICA MD [Referring] - 3-5 Days [facility] [Provider Group] - 3-5 Days [facility] [Provider Group] - 3-5 Days Time of Disposition: 19:25
[2016-11-27] MEDS ORDERED: ULTRAM PO ONE (19:25)
== END 2016-11-27 19:58 | disposition home or self-care (01) ==
LOC: ED 14:41
DX: R10.31 Right lower quadrant pain (principal); J45.909 Unspecified asthma, uncomplicated
CPT/HCPCS: 36415; 76705; 80048; 80074; 81001; 82140; 82150; 83690; 83735; 84484; 84703; 85025; 85610; 85730; 93005; 93010; 96374; 96375; 96376; 99285; C9113; J2270; J2405

== ENCOUNTER 2017-01-26 00:16 | Emergency (ER) | payer SELFPAY ==
[2017-01-26 00:39] VITALS: BP 118/78
[2017-01-26] MEDS ORDERED: ZOFRAN IM ONE (00:55)
[2017-01-26] MEDS ORDERED: MORPHINE IM ONE (00:55)
--- NOTE | 2017-01-26 01:01 | Emergency Department Report ---
ED Lower Extremity HPI - General Chief Complaint: Extremity Injury, Lower Stated Complaint: ANKEL PAIN Time Seen by Provider: 01/26/17 00:50 Source: patient, EMS Mode of arrival: Stretcher Limitations: Physical Limitation - History of Present Illness Initial Comments: Patient stated that she was chasing her dog and she fell in a hole and twisted her left ankle. No other injury MD Complaint: ankle injury -: This evening Injury: Ankle: Left Type of Injury: inversion Place: street/outdoors Severity: moderate Severity scale (0 -10): 6 Context: walking - Related Data Home Medications Medication Instructions Recorded Confirmed Last Taken Citalopram [Celexa] 20 mg PO QDAY 10/31/16 10/31/16 Unknown Previous Rx's Medication Instructions Recorded Last Taken Type Butalb/Acetaminophen/Caffeine 1 cap PO Q6HR PRN #20 cap 01/19/16 Unknown Rx [Fioricet 50-300-40 mg CAP] Promethazine [Phenergan TAB] 25 mg PO Q6HR PRN #20 tab 10/31/16 Unknown Rx oxyCODONE /ACETAMINOPHEN [Percocet 1 tab PO Q6HR PRN #20 tablet 10/31/16 Unknown Rx 5/325 mg] Famotidine [Pepcid] 20 mg PO BID #20 tablet 11/17/16 Unknown Rx Nitrofurantoin [place]abella/M-Cryst 100 mg PO Q12HR #7 capsule 11/27/16 Unknown Rx [Macrobid CAP] traMADol [Ultram] 50 mg PO Q6HR PRN #14 tablet 11/27/16 Unknown Rx Ondansetron [Zofran Odt] 4 mg PO Q8HR PRN #14 tab.rapdis 01/26/17 Unknown Rx traMADol [Ultram] 50 mg PO Q6HR PRN #14 tablet 01/26/17 Unknown Rx Allergies Allergy/AdvReac Type Severity Reaction Status Date / Time aspirin Allergy Swelling Verified 11/16/16 16:37 ibuprofen [From Motrin] Allergy Swelling Verified 11/16/16 16:37 NSAIDS (Non-Steroidal Allergy Swelling Verified 11/16/16 16:37 Anti-Inflamma NTG paste Allergy Vomiting Uncoded 11/16/16 16:37 ED Review of Systems ROS: Stated complaint: ANKEL PAIN Other details as noted in HPI Comment: All other systems reviewed and negative Constitutional: denies: chills, fever Respiratory: denies: cough Cardiovascular: denies: chest pain ED Past Medical Hx - Past Medical History Previous Medical History?: Yes Hx Congestive Heart Failure: No Hx Diabetes: No Hx Psychiatric Treatment: Yes (depression) Hx Asthma: Yes Hx COPD: No - Surgical History Past Surgical History?: Yes Additional Surgical History: tubal ligation, , tonsillectomy - Social History Smoking Status: Never Smoker Substance Use Type: None - Medications Home Medications: Home Medications Medication Instructions Recorded Confirmed Last Taken Type Butalb/Acetaminophen/Caffeine 1 cap PO Q6HR PRN #20 cap 01/19/16 Unknown Rx [Fioricet 50-300-40 mg CAP] Citalopram [Celexa] 20 mg PO QDAY 10/31/16 10/31/16 Unknown History Promethazine [Phenergan TAB] 25 mg PO Q6HR PRN #20 tab 10/31/16 Unknown Rx oxyCODONE /ACETAMINOPHEN [Percocet 1 tab PO Q6HR PRN #20 tablet 10/31/16 Unknown Rx 5/325 mg] Famotidine [Pepcid] 20 mg PO BID #20 tablet 11/17/16 Unknown Rx Nitrofurantoin Isabella/M-Cryst 100 mg PO Q12HR #7 capsule 11/27/16 Unknown Rx [Macrobid CAP] traMADol [Ultram] 50 mg PO Q6HR PRN #14 tablet 11/27/16 Unknown Rx Ondansetron [Zofran Odt] 4 mg PO Q8HR PRN #14 tab.rapdis 01/26/17 Unknown Rx traMADol [Ultram] 50 mg PO Q6HR PRN #14 tablet 01/26/17 Unknown Rx ED Physical Exam - General Limitations: Physical Limitation General appearance: alert - Head Head exam: Present: atraumatic - Eye Eye exam: Present: normal appearance - ENT ENT exam: Present: normal exam - Neck Neck exam: Present: normal inspection, full ROM - Respiratory Respiratory exam: Present: normal lung sounds bilaterally - Cardiovascular Cardiovascular Exam: Present: regular rate, normal heart sounds - GI/Abdominal GI/Abdominal exam: Present: soft. Absent: distended, tenderness, guarding - Expanded Lower Extremity Exam Left Upper Leg exam: Present: normal inspection, full ROM Knee exam: Present: normal inspection, full ROM Lower Leg exam: Present: normal inspection, full ROM Ankle exam: Present: tenderness, swelling. Absent: abrasion, laceration, ecchymosis, deformity, crepidus, dislocation, erythema Foot/Toe exam: Present: normal inspection, full ROM Neuro vascular tendon exam: Present: no vascular compromise - Back Exam Back exam: Present: normal inspection - Neurological Exam Neurological exam: Present: alert, oriented X3 - Skin Skin exam: Present: warm, intact, normal color ED Course Vital Signs 01/26/17 00:31 Temperature 99.1 F Pulse Rate 87 Respiratory 18 Rate Blood Pressure 118/78 O2 Sat by Pulse 100 Oximetry - Reevaluation(s) Reevaluation #1: 01/26/17 01:01 X-ray of the left ankle showed no dislocation or fracture. Critical care attestation.: If time is entered above; I have spent that time in minutes in the direct care of this critically ill patient, excluding procedure time. ED Disposition Clinical Impression: Left ankle sprain Disposition: DC-01 TO HOME OR SELFCARE Is pt being admited?: No Condition: Stable Instructions: Ankle Sprain (ED) Referrals: PRIMARY CARE, [Primary Care Provider] - 3-5 Days
--- NOTE | 2017-01-26 09:25 | XRay Report ---
XRAY LEFT ANKLE THREE VIEWS: 01/26/17 00:16:00 CLINICAL: Fall and pain. FINDINGS: The ankle mortise is intact. No fracture or dislocation. Mild medial and lateral soft tissue swelling. No soft tissue air or foreign body. Calcaneal and talar enthesophytes. IMPRESSION: Soft tissue injury to the ankle. Calcaneal and talar enthesopathy.
== END 2017-01-26 01:56 | disposition home or self-care (01) ==
LOC: ED 00:16
DX: S93.402A Sprain of unspecified ligament of left ankle, initial encounter (principal); J45.909 Unspecified asthma, uncomplicated; Z88.6 Allergy status to analgesic agent; Z88.8 Allergy status to other drugs, medicaments and biological substances; W17.2XXA Fall into hole, initial encounter; Y93.89 Activity, other specified; Y92.89 Other specified places as the place of occurrence of the external cause; Y99.8 Other external cause status
CPT/HCPCS: 73610; 96372; 99284; J2270; J2405